=== PATIENT | female | born 1970 | race Two or more races ===

== ENCOUNTER 2018-12-15 07:28 | Outpatient (CLI) | payer OTHER | END 2018-12-15 09:25 | disposition home or self-care (01) | LOC: SONOGRAMA 07:28 | DX: E04.1 Nontoxic single thyroid nodule (principal) ==

== ENCOUNTER 2020-11-16 08:43 | Outpatient (CLI) | payer OTHER | END 2020-11-16 09:04 | disposition home or self-care (01) | LOC: SONOGRAMA 08:43 | DX: N60.11 Diffuse cystic mastopathy of right breast (principal); N60.12 Diffuse cystic mastopathy of left breast; R92.1 Mammographic calcification found on diagnostic imaging of breast; N84.0 Polyp of corpus uteri ==